=== PATIENT | female | born 1960 | race Caucasian/White ===

== ENCOUNTER 2017-05-18 17:17 | Inpatient (IN) | payer OTHER ==
[~2017-05-18] VITALS: Ht 158.7 cm; Wt 83.6 kg
--- NOTE | ~2017-05-18 | PR ---
[place], [place] PROGRESS NOTE [id number] UNIT #: [id number] ROOM: 311 DOCTOR: THERESA BOLAÑOS MD BIRTHDATE: [birth year] DOS: 05/23/2017 CHIEF COMPLAINT: Ya, I am taking my medicines." SUMMARY OF THE VISIT: The patient was interviewed as she sat in the dining area, watching television. She stopped and engaged readily in conversation. She matter of fact did mention that she was taking her medicines, but she notes no positives or no negative and per her report things are exactly the same with her with or without the medication. She voices a plan to leave here and go move in with her youngest son; however, when discussed in treatment team housing is problematic as all of her children now have stated they do not want her to be living with them and she may now be homeless. She is tolerating the Invega well. She did receive the Invega Sustenna injection of 234 mg IM yesterday. I see no tardive dyskinesia, extrapyramidal symptoms, sedation or somnolence. MENTAL STATUS: She remains alert and oriented. Mood does still seem to be depressed. She breaks into tears frequently. She is rather guarded and suspicious and not forthcoming with details. Nurses report paranoia is still present. Memory for the most part is intact. PLAN: I will go ahead and order her secondary loading dose of Invega Sustenna of 156 mg IM for May 27. She will then proceed with a similar dose every month. We will continue to engage her in individual and fernandez milieu activity, explore placement options including group homes, discharge then when psychiatrically stable. THERESA BOLAÑOS MD CM:PNTRANS 9 THERESA BOLAÑOS MD 05/23/1740 interface
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
--- NOTE | ~2017-05-18 | PR ---
[place], [place] PROGRESS NOTE NAME: DARIO GOLDSMITH [facility] #: [id number] UNIT #: [id number] ROOM: 311 DOCTOR: Tona AMARAL,COLIN BIRTHDATE: [birth year] DOS: 05/20/2017 SUBJECTIVE: The patient seen and spoke with the staff. Per staff, the patient is refusing medication, only took one medication last night. Very irritable, isolated and demanding. The patient was on her bed, irritable and angry. When I asked her that how she is doing, she said "I don't know." She totally refused to engage on any conversation. MENTAL STATUS EXAMINATION: Irritable, hostile. Described her mood as "I don't know." Affect was labile. Thought process disorganized. Denied auditory or visual hallucination, but seems responding to stimuli. She denied suicidal ideation, intent or plan. She also denied homicidal ideation, intent or plan. Insight and judgment impaired. ASSESSMENT: Schizoaffective disorder. PLAN: 1. Continue current medication and care. 2. If the patient continues to refuse medication, probably we need to get a court order for forced medication. 3. A 1:1 therapy, psychoeducation, coping skills. COLIN AMARAL MD CM:PNLOREE 1821 03 Tona AMARAL 05/20/17 2303 interface
--- NOTE | ~2017-05-18 | PR ---
[place], [place] PROGRESS NOTE NAME: DARIO GOLDSMITH UNIT #: [id number] ROOM: 311 DOCTOR: THERESA CHA MD BIRTHDATE: [birth year] DOS: 05/30/2017 CHIEF COMPLAINT: Why can't I go Dr. Cha, I have done everything that you guys have asked." SUMMARY OF THE VISIT: The patient was interviewed as she was resting in bed. She was pleasant and cooperative upon approach, but did begin crying when she was upset about not being able to be discharged yesterday. I discussed with her at length the whole process and how the care aide is not requiring us to write a letter on her behalf, requesting that she be discharged. She was rather perplexed and bewildered by the whole process, but understood and nodded in agreement. She did request that I stop her Remeron, stating that she does not believe she needs that. I did agree to do so, but strongly recommended that she continue with the Invega. The patient has been much more compliant and much more pleasant and cooperative over the last 48 to 72 hours. MENTAL STATUS: She is alert and oriented with only some mild time gaps. Mood does seem to be strongly trending towards euthymia. Affect is much more appropriate. There are no symptoms of edith or hypomania and her delusions have lessened in frequency and intensity. Memory for the most part is intact. PLAN: I will discontinue her Remeron per her request. We will await the court's notification that we may discharge the patient back to the community and we will do so when we have the final ruling. THERESA CHA MD CM:PNTRANS 1007 1028 THERESA CHA MD 05/30/17 1027 interface
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
--- NOTE | ~2017-05-18 | PR ---
[place], [place] PROGRESS NOTE NAME: [facility] #[facility] [id number] UNIT #: [id number] ROOM: 311 DOCTOR: THERESA BOLAÑOS MD BIRTHDATE: [birth year] DOS: 05/25/2017 CHIEF COMPLAINT: "I got my shower this morning. I feel better." SUMMARY OF THE VISIT: The patient was interviewed in the dining area where she was watching television. She engaged readily in conversation, reporting that she slept better. She took a shower and feels better and ate a good breakfast. She was much more engaging. I did discuss with her the issue that she does not have a place to stay and that we are in the process of trying to find her a safe place to go and that I could not discharge her without knowing she had a safe place to go. She is compliant with her meds and has been much more cooperative. She denies side effects from the medications themselves. MENTAL STATUS: She is alert and oriented. Mood does seem to be trending towards euthymia. Affect is more appropriate. There is no edith or hypomania. Nurses report, however, she remains grossly delusional, which she hides from me. Nurses report that she oftentimes tells them that she needs multiple showers throughout the day because she smells of sex and that she needs to wash the smell off of her. She is guarded and somewhat hesitant to discuss things with me. Memory for the most part is intact. PLAN: She is to receive her secondary loading dose of Invega Sustenna of 156 mg IM today. I will write for her maintenance dose of Invega Sustenna 156 mg IM on 06/21/2017. I will discontinue her oral Invega at this point and renew her p.r.n. Ativan in case she requires intervention. Engage in individual and fernandez milieu activity, returning to the least restrictive environment when stable. THERESA BOLAÑOS MD CM:PNTRANS [id number] 1016 THERESA BOLAÑOS MD 05/25/17 1015 interface
--- NOTE | ~2017-05-18 | PR ---
[place], [place] PROGRESS NOTE NAME: [id number] UNIT #: [id number] ROOM: 311 DOCTOR: THERESA BOLAÑOS MD BIRTHDATE: [birth year] DOS: 05/26/2017 CHIEF COMPLAINT: "So you are forcing me to take medicine." SUMMARY OF THE VISIT: The patient was interviewed both prior to, during and after her court hearing for continued stay. During the court hearing, the patient made it known that she requested a court appointed claims attorney. She remains very volatile and very paranoid and feels that we are all plotting against her. I did attempt to align with her and educate her that as of now, we have issues with her having a safe place to go post-discharge, although social psychologist informs me that perhaps her daughter will let her move in temporarily as she is waiting for housing. I did also encourage her to cooperate with the medicines as if she did I did think she would be able to leave the hospital in a few days as opposed to sustaining a lengthy stay here as we wait for a hearing to occur. She did nod in approval eventually and did state that she would try to work with me. MENTAL STATUS: She is alert and oriented. She remains suspicious and guarded. She is very volatile and one moment will be crying and the next moment will be very irritable and yelling. She is tolerating the medicines well. I see no sedation, somnolence, extrapyramidal symptoms or tardive dyskinesia. PLAN: I will resume the oral Invega at 9 mg in the morning. I did attempt to discontinue this as a means to show her that the injection was going to take the place of the pills, but she refused the secondary loading dose of the Invega Sustenna. I will have nursing retry to give her the Invega Sustenna 156 mg IM today. Depending on her compliance, I may then attempt to discontinue the oral Invega once again over the weekend. We will continue to have her engage in individual and fernandez milieu activity with the plan then to return to the least restrictive environment when psychiatrically stable. THERESA BOLAÑOS MD CM:PNTRANS 0927 0939 THERESA BOLAÑOS MD 05/26/17 0937 interface
--- NOTE | ~2017-05-18 | PR ---
[place], [place] PROGRESS NOTE [id number] UNIT #: [id number] ROOM: 311 DOCTOR: THERESA BOLAÑOS MD BIRTHDATE: [birth year] DOS: 05/27/2017 CHIEF COMPLAINT: "I don't want to ruin my reputation and your reputation by taking the shot, what should I do? SUMMARY OF THE VISIT: The patient was interviewed first in the dining room, then later she did ask if she can speak to me alone. When we did, she was fixated on whether or not she should take the injection. We discussed the pros and cons of taking the injection and what my ultimate plan would be. This has changed dramatically since the report is her daughter will accept her back into her home, at least short term. The patient continues to be very much paranoid and delusional. My hope is that a secondary loading dose of the Invega Sustenna will significantly help break the psychosis. She is tolerating the medicines well. I see no sedation, somnolence, extrapyramidal symptoms or tardive dyskinesia. MENTAL STATUS: She is alert and oriented. Mood does still seem to be somewhat down, but a lot of this I believe is related to the paranoia and the fact that she feels persecuted and that bad things are happening to her. She remains grossly psychotic. PLAN: The nurses will reattempt to give her the Invega Sustenna injection of 156 mg IM today. We will continue to support and redirect, returning to the least restrictive environment when psychiatrically stable. THERESA BOLAÑOS MD CM:PNTRANS 0839 0925 THERESA BOLAÑOS MD 05/27/17 0924 interface
--- NOTE | ~2017-05-18 | PR ---
[place], [place] PROGRESS NOTE [id number] #: [id number] ROOM: 311 DOCTOR: THERESA BOLAÑOS MD BIRTHDATE: [birth year] DOS: 05/28/2017 CHIEF COMPLAINT: "Well I get to go next week." SUMMARY OF THE VISIT: The patient was interviewed in her room. She was resting in bed. She engaged readily in conversation, fixated on going home. She still does not want to comply with all aspects of care. MENTAL STATUS: She is alert and oriented. Mood does seem to be somewhat trending towards euthymia. Affect is more appropriate. There is no edith or hypomania, though there are still gross delusional system present. PLAN: I will maintain her current psychotropic regimen at this point. Engage in individual and fernandez milieu activity, returning to the least restrictive environment when stable. THERESA BOLAÑOS MD CM:PNTRANS 1501 26 THERESA BOLAÑOS MD 05/28/172124 interface
--- NOTE | ~2017-05-18 | PR ---
[place], [place] PROGRESS NOTE NAME: DARIO GOLDSMITH [facility] #: [id number] UNIT #: [id number] ROOM: 311 DOCTOR: Tona AMARAL,COLIN BIRTHDATE: [birth year] DOS: 05/21/2017 PSYCHIATRIC PROGRESS NOTE The patient seen and spoke with the staff. Per staff, the patient is not taking any medication. She is still delusional and paranoid. She took at least showers already this morning. The patient was in her bed likely yesterday. When I asked her that why she is not taking medication, she said that she does not need any, then she said that she wanted to go home. She also mentioned that she does not like to be in the hospital. When I asked if they are to go home, she need to take her medications, she did not answer anything. MENTAL STATUS EXAMINATION: Pleasant, cooperative. Described her mood as "okay." Affect labile, broad range. Thought process disorganized at times. She denied auditory or visual hallucination, but seems responding to stimuli. She is delusional or paranoid. She denied suicidal ideation, intent or plan. She also denied homicidal ideation, intent or plan. Insight and judgment impaired. ASSESSMENT: Schizoaffective disorder. PLAN: 1. Continue current medication and care. Need to educate patient regarding the importance of taking medication. 2. If patient continues to refuse medication, we need to get a court order for forced medication. 3. Encourage activities and groups. 4. Final medication management and discharge plan by the regular team. COLIN AMARAL MD CM:FELIX 12 Tona AMARAL 05/21/17 2344 interface
--- NOTE | ~2017-05-18 | PR ---
[place], [place] PROGRESS NOTE NAME: [facility] [id number] UNIT #: [id number] ROOM: 311 DOCTOR: THERESA BOLAÑOS MD BIRTHDATE: [birth year] DOS: 05/24/2017 CHIEF COMPLAINT: "I already had my breakfast, just leave me alone." SUMMARY OF THE VISIT: The patient was interviewed as she rested in bed. Initially, she was angry, short and terse with me. She even raised her voice at me at one point. I did try to calm her and enlist her to work with me as opposed to working against me and she did seem to calm and be able to converse with me more readily. She did take the Invega Sustenna and has tolerated it well. She has been more compliant overall with her psychiatric medications. She still, however, remains grossly paranoid and very delusional. MENTAL STATUS: She is alert and oriented to person, place, approximate to time. Mood seems labile still. She jumps from topic to topic. She at times is nearly pressured in her speech, but is redirectable. She remains grossly delusional and paranoid. Memory has some mild gaps, but overall she is fairly well intact. PLAN: I will speed up the titration of her Invega Sustenna. I will give her, her secondary loading dose of Invega Sustenna 156 mg IM on May 25 as opposed to May 27. I will renew her p.r.n. Ativan in case she requires intervention. We will attempt to engage her in individual and fernandez milieu activity as best we can, continue to explore housing options for her as family has repeatedly stated they are unable to meet her needs and she would require some more supervision than to be living alone. We will discharge then when psychiatrically stable and when an appropriate housing issue has been found for her. THERESA BOLAÑOS MD CM:PNTRANS 1 1 THERESA BOLAÑOS MD 05/24/17 0941 interface
[2017-05-18] MEDS ORDERED: ZOCOR40 MG PO (17:34)
[2017-05-18] MEDS ORDERED: DUONEB 3 MG/3 ML3 M1 INH (17:36)
[2017-05-18] MEDS ORDERED: INVEGA SUSTENN234 MG IM (17:38)
[2017-05-18 22:02] VITALS: BP 124/81
[2017-05-18 23:53] VITALS: BP 124/81
[2017-05-19 06:33] LABS: BILIRUBIN NEGATIVE (NEGATIVE); BLOOD NEGATIVE (NEGATIVE); CLARITY SL CLOUDY (CLEAR); COLOR YELLOW (YELLOW); GLUCOSE NEGATIVE (NEGATIVE); KETONE NEGATIVE (NEGATIVE); LEUKO ESTERASE 1+ (NEGATIVE); NITRITE NEGATIVE (NEGATIVE); SPECIFIC GRAVITY <= 1.005 (1.005-1.030); UROBILINOGEN 0.2 E.U./dl (0.2-1.0)
[2017-05-19 06:58] LABS: BACTERIA TRACE
[2017-05-19 07:36] LABS: BASO % 0.7 % (0.0-1.0); EOS % 0.7 % (1.0-4.0); HEMATOCRIT 46.9 % (37.0-47.0); HEMOGLOBIN 15.9 g/dl (12.0-16.0); LYMPH # 2.1 10*3/uL (1.3-4.4); LYMPH % 33.7 % (27.0-41.0); MEAN CELL VOLUME 92.7 fl (81.0-99.0); MEAN CORPUSCULAR HGB 31.4 pg (27.0-31.0); MEAN CORPUSCULAR HGB CONC 33.9 g/dl (33.0-37.0); MEAN PLATELET VOLUME 12.1 fl (9.6-12.3); MONO # 0.5 10*3/uL (0.1-1.0); NEUT # 3.5 10*3/uL (2.3-7.9); NEUT % 56.7 % (47.0-73.0); PLATELET COUNT AUTOMATED 158 10*3/uL (130-400); RED BLOOD COUNT 5.06 10*6/uL (4.10-5.10); RED CELL DISTRI WIDTH 11.9 % (0-14.5); WHITE BLOOD COUNT 6.1 10*3/uL (4.8-10.8)
[2017-05-19 07:59] VITALS: BP 118/73
[2017-05-19 08:05] LABS: CHLORIDE 105 mmol/L (98-107); POTASSIUM 4.6 mmol/L (3.5-5.1); SODIUM 139 mmol/L (136-145)
[2017-05-19 08:27] LABS: ALBUMIN 3.3 gm/dl (3.1-4.5); ALKALINE PHOSPHATASE 91 U/L (45-117); BUN 23 mg/dl (7-24); CHOLESTEROL 153 mg/dL (<200); CREATININE 0.84 mg/dL (0.55-1.02); HDL CHOLESTEROL 53 mg/dl (40-60); LDL CHOLESTEROL 77 mg/dL (9-159); SGOT/AST 9 IU/L (3-35); SGPT/ALT 16 U/L (12-78); TOTAL PROTEIN 6.6 gm/dL (6.4-8.2); TRIGLYCERIDES 117 mg/dl (<150); VLDL CHOLESTEROL 23 mg/dL (6-40)
[2017-05-19 10:27] LABS: VITAMIN D, 25-HYDROXY 10.6 ng/mL (30-100)
[2017-05-19 20:10] VITALS: BP 109/65; BP 118/73
[2017-05-20 07:57] VITALS: BP 110/66
[2017-05-20 20:20] VITALS: BP 112/75
[2017-05-21 07:49] VITALS: BP 130/70
[2017-05-21 20:04] VITALS: BP 126/74
[2017-05-22 08:05] VITALS: BP 119/77
[2017-05-22 19:48] VITALS: BP 122/72
[2017-05-23 08:00] VITALS: BP 111/57
[2017-05-23 20:00] VITALS: BP 101/68
[2017-05-24 07:33] VITALS: BP 120/76
[2017-05-24 20:00] VITALS: BP 113/64
[2017-05-25 07:36] VITALS: BP 120/66
[2017-05-25 20:49] VITALS: BP 117/60
[2017-05-26 07:41] VITALS: BP 120/62
[2017-05-26 20:00] VITALS: BP 129/81
[2017-05-27 08:13] VITALS: BP 121/62
[2017-05-27 20:04] VITALS: BP 126/68
[2017-05-28 08:01] VITALS: BP 125/83
[2017-05-28 08:02] VITALS: BP 125/83
[2017-05-28 20:00] VITALS: BP 125/69
[2017-05-29] MEDS ORDERED: MIRTAZAPINE15 M2 PO (08:59)
[2017-05-29] MEDS ORDERED: INVEGA9 MG PO (08:59)
[2017-05-29] MEDS ORDERED: INVEGA SUSTENN156 MG IM (08:59)
[2017-05-29] MEDS ORDERED: Vitamin D PO (08:59)
[2017-05-29 09:07] VITALS: BP 125/76
[2017-05-29 20:00] VITALS: BP 122/64
[2017-05-30 07:55] VITALS: BP 130/68
== END 2017-05-30 16:09 | disposition home or self-care (01) | DRG 885 ==
LOC: 3N 17:17
PROVIDERS: Psychiatry & Neurology Psychiatry
DX: F25.1 Schizoaffective disorder, depressive type (principal); F22 Delusional disorders; F32.9 Major depressive disorder, single episode, unspecified; X08.8XXS Exposure to other specified smoke, fire and flames, sequela; E78.2 Mixed hyperlipidemia; J45.20 Mild intermittent asthma, uncomplicated; F12.10 Cannabis abuse, uncomplicated; T20.1 Burn of first degree of head, face, and neck; Z72.0 Tobacco use; Z71.6 Tobacco abuse counseling; Z90.49 Acquired absence of other specified parts of digestive tract; Z82.49 Family history of ischemic heart disease and other diseases of the circulatory system; Z80.1 Family history of malignant neoplasm of trachea, bronchus and lung; Z88.0 Allergy status to penicillin; Z88.6 Allergy status to analgesic agent; Z79.899 Other long term (current) drug therapy

== ENCOUNTER 2018-04-30 11:23 | Inpatient (IN) | payer OTHER ==
--- NOTE | ~2018-04-30 | PR ---
[place], [place] PROGRESS NOTE NAME[id number] UNIT #: [id number] ROOM: 312 DOCTOR: THERESA BOLAÑOS MD BIRTHDATE: [birth year] DOS: 05/04/2018 INTERVAL NOTE CHIEF COMPLAINT: "My family don't want me no one, no one loves me." SUMMARY OF THE VISIT: The patient was interviewed as she was attempting to eat breakfast. She was having a great deal of difficulty feeding herself and was using her hands to feel around the tray in order to be able to grab utensils and/or food. She did require a lot of supervision by the aides to help her eat. Nurses report, she requires a great deal of support and redirection to dress and attend to her ADLs. She also does seem to be outwardly depressed and sought for a brief period of time when she was talking about not having a place to go to and having people who love her. She did endorse some difficulty sleeping last night and notes that her appetite has fluctuated prior to coming into the hospital. MENTAL STATUS: She is alert and oriented with some mild time gaps. Mood does seem to be still somewhat labile with depressive and anxious overtones. She still does tend to be very flighty and disjointed at times. Memory does have gaps. PLAN: I will go ahead and add Remeron SolTab 15 mg at bedtime to combat the depression. We will plan to reload her with her secondary loading dose of Invega Sustenna this weekend and monitor for risk, benefit. Given the severity of her physical and mental decline and her poor decision making and medication noncompliance, I do feel that the patient would benefit from a long-term care placement. We will engage in individual and fernandez milieu activity, returning to the least restrictive environment when psychiatrically stable. THERESA BOLAÑOS MD CM:PNTRANS 7 5 THERESA BOLAÑOS MD 05/04/18926 interface
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
--- NOTE | ~2018-04-30 | PR ---
[place], [place] PROGRESS NOTE [id number] #: [id number] ROOM: 317 DOCTOR: THERESA BOLAÑOS MD BIRTHDATE: [birth year] DOS: 05/08/2018 CHIEF COMPLAINT: "I'm okay, thank you. I didn't want that sleeping pill because I think it was too strong." SUMMARY OF THE VISIT: The patient was interviewed in the dining area. She had already completed her breakfast. She engaged readily in conversation. She was much more polite and pleasant. She thanked me for helping her. She did report that she refused the sleeping pill because she thought it was too strong for her. When I did offer her an adjustment in the sleeping pill, she nodded in approval. Otherwise, she seems to be tolerating the current medication regimen well and overall does seem to be trending toward improvement. I did discuss with her the fact that [facility] did accept her as a patient there and she requested information from me about the facility. Otherwise, she was bright and pleasant and offered no other complaints. MENTAL STATUS: She is alert and oriented with time gaps. Mood does seem to be strongly trending towards euthymia. Affect is much more appropriate. There is no edith or hypomania. There were outwardly no signs of psychosis. Short term memory continues to have gaps. PLAN: I will adjust her dose of the Remeron to 30 mg at bedtime attempting to mute some of the sedation and somnolence. We will engage her in individual and fernandez milieu activity with the ultimate plan to admit her to [facility] where I will be her treating psychiatrist of record. THERESA BOLAÑOS MD CM:PNTRANS [phone] THERESA BOLAÑOS MD 05/09/18 0352 interface
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
--- NOTE | ~2018-04-30 | PR ---
[place], [place] PROGRESS NOTE NAME: DARIO GOLDSMITH UNIT #: [id number] ROOM: 317 DOCTOR: THERESA BOLAÑOS MD BIRTHDATE: [birth year] DOS: 05/07/2018 CHIEF COMPLAINT: "I want to go home, do I get to leave here soon." SUMMARY OF THE VISIT: The patient was interviewed as she was in the dining room. She had eaten all of her breakfast and requested seconds. She was pleasant upon approach. She did ask if we have found her a place to stay yet and I told her that it was in the works. She thanked me profusely for helping her. She was very pleasant and cooperative and engaged readily in conversation. There was no agitation or aggression. I also did not see the presence of any sedation, somnolence, extrapyramidal symptoms or tardive dyskinesia. MENTAL STATUS: She is alert and oriented to person, place, not time. Mood does seem to be strongly trending towards euthymia. Affect is much more appropriate. There is no edith or hypomania. There is no gross psychosis. Short term memory does have some mild gaps. PLAN: I will renew p.r.n. Ativan should she require intervention. Engage in individual and fernandez milieu activity, returning to the least restrictive environment when psychiatrically stable. THERESA BOLAÑOS MD CM:PNTRANS [id number] THERESA BOLAÑOS MD 05/08/18 0423 interface
--- NOTE | ~2018-04-30 | PR ---
[place], [place] PROGRESS NOTE NAME: DARIO GOLDSMITH UNIT #: [id number] ROOM: 312 DOCTOR: THERESA BOLAÑOS MD BIRTHDATE: [birth year] DOS: 05/02/2018 INTERVAL NOTE CHIEF COMPLAINT: "I took my medicine, can't I go home now." SUMMARY OF THE VISIT: The patient was interviewed in the dining area where she was sitting alone. She engaged readily in conversation. She did report that she has taken her medicine. She did report she did not like the taste and I did offer her the possibility of receiving a monthly injection. At first, she refused this, but later as she thought about it she changed her mind and said that she would take the injection. convention services manager did share with me that the patient may not have a place to go as her son now has stating he does not want his mom to return home, fearing that this is not the best environment for her. MENTAL STATUS: She was much more engaging in conversation and there was no bizarreness, readily discussed. She reports no side effects from the medicine and I see no sedation, somnolence or extrapyramidal symptoms. PLAN: I will go ahead and start her on Invega Sustenna 234 mg IM today. Support and monitor, engage in individual and fernandez milieu activity, returning to the least restrictive environment when psychiatrically stable. THERESA BOLAÑOS MD CM:PNTRANS [phone] THERESA BOLAÑOS MD 05/03/18 0540 interface
--- NOTE | ~2018-04-30 | PR ---
[place], [place] PROGRESS NOTE NAME: DARIO GOLDSMITH UNIT #: [id number] ROOM: 312 DOCTOR: THERESA BOLAÑOS MD BIRTHDATE: [birth year] DOS: 05/03/2018 INTERVAL NOTE CHIEF COMPLAINT: "Have they all given up on me." SUMMARY OF THE VISIT: The patient was interviewed in the dining area where she had completed her breakfast and was sitting there, trying to dry her hands from the Maple syrup, I did engage her in conversation. She asked if she was leaving today because she took her injection. I then informed her that her son did not feel comfortable with her returning home and did not want her then discharge to his home at that time, she sobbed almost hysterically stating that no one wants her and that her entire family has given up. She did verbalize that she would be willing to sign in; however, 30 minutes later when the nurse did approach her to sign in, she refused at that point in time, we will revisit the situation later today. Outwardly, she is tolerating the Invega Sustenna injection well without sedation, somnolence or extrapyramidal symptoms. MENTAL STATUS: She is alert and oriented. Mood does seem to be trending towards euthymia. Affect is more appropriate. There is no edith or hypomania. PLAN: I will order Invega Sustenna secondary loading dose and a monthly dose thereafter of 156 mg on 05/05/2018, engage in individual and fernandez milieu activity, returning then to the least restrictive environment when psychiatrically stable. THERESA BOLAÑOS MD CM:PNTRANS [phone] THERESA BOLAÑOS MD 05/04/18 0722 interface
[~2018-04-30 11:23] MED LIST: DUONEB 3 MG/3 ML3 M1 INH; INVEGA SUSTENN156 MG IM; INVEGA SUSTENN234 MG IM; INVEGA9 MG PO; MIRTAZAPINE15 M2 PO; Vitamin D PO; ZOCOR40 MG PO
[2018-04-30] MEDS ORDERED: INVEGA SUSTENN234 MG IM (12:02)
[2018-04-30] MEDS ORDERED: DEPAKOTE125 MG PO (12:03)
[2018-04-30 15:50] VITALS: BP 108/84
--- NOTE | 2018-04-30 15:50 | NUR ---
RUPALDARIO a 57 year old F admitted via stretcher from the EMERGENCY ROOM as a emergency 72 hr. hold admission. Arrived on unit at 1550. ALLERGIES: CODEINE, PCN. Vital signs are: 98.1-83-18 108/84. 95% ROOM AIR. THE PATIENT REFUSED TO SIGN ANY ADMISSION FORMS. PT ADMITTED VIA PINK SLIP. PT GAVE NAMES OF SEVERAL INDIVIDUALS SHE DOES NOT WISH TO COMMUNICATE WITH. THESE WERE LISTED ON THE BEHAVIORAL HEALTH CONSENT FORM AND PLACED ON PT'S CHART, HOWEVER, PT REFUSED TO SIGN THIS FORM: Admitted under the services of Dr. MAMI BAILEY,[facility]. A search was conducted and hazardous articles were removed. Client was oriented to the unit. TYESHA LUIS
--- NOTE | 2018-04-30 16:18 | NUR ---
PM GROUP/MUSIC/ART PT JUST ADMITTED TO [facility]. PT UNABLE TO ATTEND GROUP DUE TO OTHER ASSESSMENTS AND BECOMING ORIENTED TO UNIT. PT WILL BE ENCOURAGED TO ATTEND AND PARTICIPATE IN FUTURE GROUP SESSIONS.
[2018-04-30 16:29] LABS: BILIRUBIN NEGATIVE (NEGATIVE); BLOOD NEGATIVE (NEGATIVE); CLARITY CLEAR (CLEAR); COLOR YELLOW (YELLOW); GLUCOSE NEGATIVE (NEGATIVE); KETONE TRACE (NEGATIVE); LEUKO ESTERASE 2+ (NEGATIVE); NITRITE NEGATIVE (NEGATIVE); SPECIFIC GRAVITY 1.025 (1.005-1.030); UROBILINOGEN 0.2 E.U./dl (0.2-1.0)
--- NOTE | 2018-04-30 16:45 | NUR ---
ENRIQUE BONNER AWARE OF ADMISSION.
--- NOTE | 2018-04-30 17:00 | NUR ---
Introduced self to pt to establish rapport and discussed meeting tomorrow for PSA. Pt asked if she needed anything tonight and pt denied. Pt was eating a large meal and seemed to have a good appetite.
[2018-04-30 17:03] LABS: BACTERIA 2+; RBC 0-2 rbc/hpf (0-2); WBC 16-20 wbc/hpf (0-5)
--- NOTE | 2018-04-30 17:07 | NUR ---
CALL PLACED TO [phone] FOR HOSPITALIST CELL NUMBER ONE FOR , SPOKE TO , MADE AWARE OF CONSULT. STATES TO PLACE CONSULT UNDER .
[2018-04-30 17:14] VITALS: BP 108/84
--- NOTE | 2018-04-30 17:51 | NUR ---
ON UNIT TO SEE PT AT THIS TIME.
--- NOTE | 2018-04-30 18:26 | NUR ---
ORDER RECIEVED FOR STAT URINE DRUG SCREEN, CALL PLACED TO , MADE AWARE URINE DRUG SCREEN WAS COMPLETED AT [facility] LAST NIGHT, COPY ON CHART. UDS NEGATIVE FOR ALL. STATES NO NEED TO REPEAT UDS AT THIS TIME.
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
[2018-04-30 19:51] VITALS: BP 118/74
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
--- NOTE | 2018-05-01 05:19 | NUR ---
PATIENT OBSERVED ON Q 15 MIN CHECKS TO HAVE SLEPT APPROX 7 HOURS WITH X1 AWAKENING TO USE THE RESTROOM WITH ASSISTANCE OF STAFF. NO SIGNS OR SYMPTOMS OF DISTRESS NOTED.
[2018-05-01 07:15] LABS: BASO % 0.4 % (0.0-1.0); EOS # 0.1 10*3/uL (0.0-0.4); EOS % 1.6 % (1.0-4.0); HEMATOCRIT 43.9 % (37.0-47.0); HEMOGLOBIN 14.1 g/dl (12.0-16.0); LYMPH # 2.5 10*3/uL (1.3-4.4); LYMPH % 35.2 % (27.0-41.0); MEAN CORPUSCULAR HGB 30.5 pg (27.0-31.0); MEAN CORPUSCULAR HGB CONC 32.1 g/dl (33.0-37.0); MEAN PLATELET VOLUME 11.5 fl (9.6-12.3); MONO # 0.6 10*3/uL (0.1-1.0); MONO % 8.1 % (3.0-9.0); NEUT # 3.9 10*3/uL (2.3-7.9); NEUT % 54.4 % (47.0-73.0); PLATELET COUNT AUTOMATED 180 10*3/uL (130-400); RED BLOOD COUNT 4.62 10*6/uL (4.10-5.10); RED CELL DISTRI WIDTH 11.9 % (0-14.5); WHITE BLOOD COUNT 7.1 10*3/uL (4.8-10.8)
[2018-05-01 07:36] LABS: ALBUMIN 2.9 gm/dl (3.1-4.5); ALKALINE PHOSPHATASE 85 U/L (45-117); BUN 26 mg/dl (7-24); CHLORIDE 106 mmol/L (98-107); CHOLESTEROL 202 mg/dL (<200); CREATININE 0.86 mg/dL (0.55-1.02); POTASSIUM 4.2 mmol/L (3.5-5.1); SGOT/AST 21 IU/L (3-35); SGPT/ALT 20 U/L (12-78); SODIUM 142 mmol/L (136-145); TOTAL PROTEIN 6.2 gm/dL (6.4-8.2); TRIGLYCERIDES 91 mg/dl (<150); VLDL CHOLESTEROL 18 mg/dL (6-40)
[2018-05-01 07:37] VITALS: BP 118/76
[2018-05-01 07:45] LABS: HDL CHOLESTEROL 51 mg/dl (40-60); LDL CHOLESTEROL 133 mg/dL (9-159)
--- NOTE | 2018-05-01 08:15 | NUR ---
PHYSICAL THERAPY Nursing screen received. PT orders also received. Thank you. Brionna Duncan,PT
[2018-05-01 08:19] LABS: VITAMIN D, 25-HYDROXY 15.4 ng/mL (30-100)
--- NOTE | 2018-05-01 08:30 | NUR ---
Treatment Plan meeting with Dr. Cha, RN, AT, SW and Loss Prevention Coordinator. Plan for discharge next week. Pt. is from Home. Will work with family to discuss discharge Planning.
--- NOTE | 2018-05-01 09:26 | NUR ---
SPOKE WITH 'S OFFICE REGARDING COMPETANCY EVAL NEEDED, PER STAFF NOT IN UNTIL TOMORROW.
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
--- NOTE | 2018-05-01 11:55 | NUR ---
B12 INJECTION GIVEN TO RIGHT DELTOID PT TOLERATED WITHOUT ISSUE.
--- NOTE | 2018-05-01 11:58 | NUR ---
AM GROUP THERAPY PT WAS PRESENT FOR MORNING GROUP THERAPY SITTING IN A WHEELCHAIR WITH HER HEAD DOWN ON THE TABLE. PT WAS INVITED AND REFUSED TO JOIN OR PARTICIPATE IN GROUP. PT WOULD OCCATIONALLY CALL FOR A NURSE OR ASK ME IF SHE COULD GO TO HER ROOM AND GO TO BED. PT ABRUPTLY YELLED OUT, "WILLOWDEAN" AND SCARED THE ENTIRE GROUP. PT WAS ASKED NOT TO DO THAT AND STATED, "DO WHAT?" PT CLAIMS THAT SHE IS BLIND BUT WAS WITNESSED BY THIS GRAVITY MANAGER TO GET AN ARM CHAIR, POSITION IT AND PROP HER FEET UP ON THE CHAIR. PT WILL BE FURTHER ENCOURAGED TO PARTICIPATE IN GROUP ACTIVITIES.
--- NOTE | 2018-05-01 11:58 | NUR ---
PERSONAL DAILY GOAL PT UNWILLING TO PARTICIPATE IN DAILY GOAL SETTING.
--- NOTE | 2018-05-01 12:43 | NUR ---
initial clinicals faxed to insurance company for review
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
--- NOTE | 2018-05-01 14:46 | NUR ---
Message left for Valentine at [facility] to discuss follow up appointments.
--- NOTE | 2018-05-01 15:40 | NUR ---
PM GROUP THERAPY/INTERPERSONAL INTERACTIONS PT DID NOT ATTEND AFTERNOON GROUP THERAPY. PT WAS IN BED RESTING. WILL ENCOURAGE PT TO ATTEND AND PARTICIPATE TOMORROW.
[2018-05-01 20:00] VITALS: BP 118/67
--- NOTE | 2018-05-01 23:00 | NUR ---
P-PARANOIA AND MEDICATION COMPLIANCE. 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 PATIENT PARANOID ABOUT TAKING MEDICATION. PATIENT STATED THAT THE MEDICATION IS POISON. PATIENT COMPLIANT WITH MEDICATIONS AT HS. I-REDIRECTION WITH 1:1 INTERACTION AND PRESENT REALITY ORIENTATION, EDUCATE AND ENCOURAGE MEDICATION COMPLIANCE R-PATIENT IS AGITATED AND TEARFUL THIS SHIFT. PATIENT WITH NO HALLUCINATIONS OR DELUSIONS. PATIENT WITH NO SUICIDAL OR HOMICIDAL IDEATIONS. PATIENT PREOCCUPIED WITH GOING TO THE BATHROOM THROUGHOUT SHIFT. PATIENT AMBULATORY WITH ASSIST X 1 DUE TO PATIENT HAVING POOR VISION. PATIENT CONTINENT OF BOWEL AND BLADDER. P-CONTINUE MEDICATION COMPLIANCE, CONTINUE TO PRESENT REALITY, ENCOURAGE GROUP THERAPY WHILE AWAKE
--- NOTE | 2018-05-02 02:10 | NUR ---
24 HR chart check completed.
--- NOTE | 2018-05-02 05:58 | NUR ---
PATIENT SLEPT 3-4 HOURS OF INTERRUPTED SLEEP THROUGHOUT SHIF. Q 15 MINUTE CHECKS MAINTAINED
--- NOTE | 2018-05-02 06:10 | NUR ---
PATIENT WITH INCREASED FREQUENCY OF URINE THROUGHOUT SHIFT. URINE SPECIMEN OBTAINED. URINE CLOUDY YELLOW WITH OUTPUT OF 150ML. PATIENT DENIES DYSURIA AT THIS TIME.
[2018-05-02 07:50] LABS: BILIRUBIN NEGATIVE (NEGATIVE); BLOOD TRACE-LYSED (NEGATIVE); CLARITY SL CLOUDY (CLEAR); COLOR YELLOW (YELLOW); GLUCOSE NEGATIVE (NEGATIVE); KETONE NEGATIVE (NEGATIVE); LEUKO ESTERASE 1+ (NEGATIVE); NITRITE NEGATIVE (NEGATIVE); PH 6.5 (5.0-9.0); UROBILINOGEN 0.2 E.U./dl (0.2-1.0)
--- NOTE | 2018-05-02 08:05 | NUR ---
PT AWAKE, ALERT, EATING BREAKFAST AT THIS TIME IN THE DINING ROOM.
--- NOTE | 2018-05-02 08:07 | NUR ---
ON UNIT TO SEE PT AT THIS TIME.
[2018-05-02 08:29] VITALS: BP 121/67
--- NOTE | 2018-05-02 08:30 | NUR ---
Discharge Plan remains to discharge next week. Working with patient on Safe Placement.
--- NOTE | 2018-05-02 09:28 | NUR ---
Nursing screen and Occupational Therapy referral received. Thank you. Rupal Hoskins OTR/L
--- NOTE | 2018-05-02 09:50 | NUR ---
ON UNIT TO SEE PT AT THIS TIME.
[2018-05-02 10:47] LABS: BACTERIA 3+; CALCIUM OXALATE CRYSTALS 2+
--- NOTE | 2018-05-02 11:56 | NUR ---
AM GROUP THERAPY/SELF-CARE PT WAS IN BED AT THE START OF GROUP AND WHEN ENCOURAGED TO ATTEND STATED, "I DON'T FEEL LIKE IT, I HAVE A HEADACHE." PT WILL BE ENCOURAGED TO ATTEND THIS AFTERNOON GROUP.
--- NOTE | 2018-05-02 13:13 | NUR ---
ALICE SUSTENNA 234MG IM GIVEN TO LEFT GLUTE AT THIS TIME, PT WILLINGLY ACCEPTED INJECTION AND TOLERATED WELL. PT EXPRESSED UNDERSTANDING OF MEDICATION USE AND MONTHLY REGIME.
--- NOTE | 2018-05-02 13:56 | NUR ---
Spoke with Valentine at [facility]. Pt. has been discharged from their services due to Non-Compliance. Call placed to [facility] and Spoke with Chetna who also states that Patient was discharged from their services due to Non-Compliance. Left Voice Message for Intake at [facility] through [facility]. No Beds are available at this time and Chetna states that Patient will most likely require discharge to fdc.
--- NOTE | 2018-05-02 15:25 | NUR ---
NOTIFIED OF REPEAT UA RESULT. PT DENIES PAIN/DYSURIA BUT HAS HAD AN INCREASE IN URINARY FREQUENCY. STATES SHE WILL TAKE A LOOK. NNO AT THIS TIME.
--- NOTE | 2018-05-02 15:48 | NUR ---
PM GROUP THERAPY/RELAXATION TECHNIQUES PT ENTERED GROUP LATE. PT WAS IN A WHEELCHAIR AND REFUSED TO PARTICIPATE IN GROUP ACTIVITIES. PT MADE INAPPROPRIATE COMMENTS INTERMITTEDLY DURING THE TIME SHE WAS IN GROUP, BEING INSENSITIVE TO A PEER WHO WAS SOBBING. PT WAS REDIRECTED. PT IS INTRUSIVE AND DEMANDING. PT DID EXPRESS DELUSIONAL IDEATIONS BY STATING, "TYESHA, TYESHA! COME AND TAKE MY COFFEE, IT TASTED LIKE TOOTHPASTE AND I DON'T WANT ANYONE ELSE TO DRINK IT AND GET POISONED."
--- NOTE | 2018-05-02 15:59 | NUR ---
Received call back from Rosaura at Intake Case Management at [facility]. Unfortunately there are no Housing options for patient for housing at this time. Pt. was discharged due to Non-Compliance and they are unable to assist.
--- NOTE | 2018-05-02 16:30 | NUR ---
ON UNIT TO SEE PT
--- NOTE | 2018-05-02 16:42 | NUR ---
Collaborated with tx team and with psychologist regarding barriers to discharge and need for a placement. Discussed options and plan to complete updated PASSR tomorrow.
--- NOTE | 2018-05-02 17:59 | NUR ---
P- PARANOIA, LABILE MOOD. ISOLATIVE AT TIMES. I- ORIENTATION, MOOD AND BEHAVIOR ASSESSED. ASSESSED PT FOR SI/HI, INTENT OR PLAN. ASSESSED FOR S/S INTERNAL STIMULI, PARANOIA AND/OR DELUSIONS. MEDICATIONS ADMINISTERED PER PHYSICIAN'S ORDERS. ADL CARE COMPLETED BY PT WITH ASSIST OF STAFF X1 FOR SAFETY D/T VISUAL IMPAIRMENTS. PT ENCOURAGED TO ATTEND AND PARTICIPATE IN [facility] GROUPS AND ACTIVITIES. R- PT IS ALERT AND ORIENTED TO PERSON, PLACE AND APPROXIMATE TIMES. RESPS EASY AND EVEN ON ROOM AIR. MOOD IS LABILE, PT HAD ONE TEARFUL EPISODE THIS SHIFT, UPON 1:1 WITH RN PT STATED SHE WAS UPSET BECAUSE "I'VE LOST EVERYTHING" PT THEN REFUSED TO ELABORATE OR ENGAGE IN FURTHER CONVERSATION. PT CONTINUES TO APPEAR PARANOID REGARDING MEDICATIONS BUT HAS BEEN MEDICATION COMPLIANT THIS SHIFT WITHOUT DIFFICULTY. PT DENIES SI/HI, INTENT OR PLAN. PT DENIES HALLUCINATIONS, NO RESPONSE TO INTERNAL STIMULI NOTED. P- PLAN TO CONTINUE CURRENT TREATMENT, MONITOR MOOD AND BEHAVIOR, PROVIDE 1:1, REDIRECTION AND REORIENTATION NEEDED. CONTINUE TO ENCOURAGE MEDICATION COMPLIANCE AND GROUP ATTENDANCE AND PARTICIPATION.
--- NOTE | 2018-05-02 18:37 | NUR ---
SHIFT CHART CHECK COMPLETED.
[2018-05-02 20:53] VITALS: BP 114/77
--- NOTE | 2018-05-02 23:33 | NUR ---
P-PARANOIA, DEPRESSED MOOD, AND URINARY FREQUENCY. PATIENT ISOLATIVE AT THIS TIME TO HER ROOM. PATIENT GOING TO THE BATHROOM AND HAVING FREQUENCY. PATIENT DENIES DYSURIA I-REDIRECTION WITH 1:1 INTERACTION. EDUCATE AND ENCOURAGE MEDICATION COMPLIANCE R-PATIENT VERBALIZED THAT SHE WANTED TO GO TO HER ROOM SOON HER SNACK WAS OVER. PATIENT DID NOT WANT TO INTERACT WITH OTHERS AT HS. PATIENT STATED THAT SHE THINKS AT TIMES SHE SEES BETTER BUT THERE ARE OTHER TIMES THAT SHE REALLY CAN NOT. NOURISHMENT, SNACK, AND FLUIDS PROVIDED P-CONTINUE MEDICATION COMPLIANCE, CONTINUE REALITY ORIENTATION, ENCOURAGE GROUP THERPAY WHILE AWAKE
--- NOTE | 2018-05-03 00:19 | NUR ---
24 HR chart check completed.
--- NOTE | 2018-05-03 06:11 | NUR ---
PATIENT SLEPT 4 HOURS OF INTERRUPTED SLEEP THROUGHOUT SHIFT. Q 15 MINUTE CHECKS MAINTAINED
--- NOTE | 2018-05-03 07:46 | NUR ---
PT AWAKE, ALERT, EATING BREAKFAST IN DINING ROOM AT THIS TIME.
--- NOTE | 2018-05-03 08:15 | NUR ---
Treatment Plan meeting with Dr. Cha, RN, AT, SW and High Voltage Electrician. Plan for discharge Next week. Pt. will require 24 hour care and [place] [facility]. WIll need PASRR submitted.
[2018-05-03 09:13] VITALS: BP 122/76
--- NOTE | 2018-05-03 12:14 | NUR ---
AM GROUP/MUSIC THERAPY PT CHOSE NOT TO ATTEND MORNING GROUP BUT WAS BROUGHT IN BY NURSE TO AVOID SELF-ISOLATION. PT SAT IN WHEELCHAIR WITH FEET PROPPED AND EYES CLOSED. PT WAS REMOVED BY SW AND RETURNED UPSET. PT WAS WILLING TO DISCUSS WHAT WAS UPSETTING BUT THEN STOPPED MID SENTENCE STATING, "IT'S A LONG STORY AND I CAN'T TELL IT WITHOUT A CIGARETTE AND A SOFTWARE PROGRAM MANAGER.
--- NOTE | 2018-05-03 12:16 | NUR ---
PERSONAL DAILY GOAL SETTING SOCIAL BOUNDRIES/EDIQUETTE AND REALITY ORIENTATION
--- NOTE | 2018-05-03 13:47 | NUR ---
HENS completed online. PASRR submitted successfully. Document referred to [facility] for further review. Faxed Documentation to [facility] . Validation Complete. Copy placed on patient chart.
--- NOTE | 2018-05-03 14:10 | NUR ---
P- LABILE MOOD. TEARFUL. PARANOIA. DELUSIONAL THOUGHT PROCESSES. ISOLATIVE BEHAVIOR. I- ORIENTATION, MOOD AND BEHAVIOR ASSESSED. ASSESSED PT FOR SI/HI, INTENT OR PLAN. ASSESSED PT FOR S/S INTERNAL STIMULI. MEDICATIONS ADMINISTERED PER PHYSICIAN'S ORDERS. ADL CARE COMPLETED BY PT WITH ASSIST FROM STAFF X1 D/T VISUAL IMPAIRMENTS. 1:1 WITH PT, ALLOWED PT TIME TO EXPRESS SELF AND VENT FEELINGS AND FRUSTRATIONS. ENCOURAGED PT TO ATTEND AND PARTICIPATE IN GROUPS AND ACTIVITIES. R- PT IS ALERT AND ORIENTED X4. MEMORY APPEARS TO BE INTACT. RESPS EASY AND EVEN ON ROOM AIR. MOOD IS LABILE, MOOD RANGES FROM DEPRESSED AND TEARFUL TO ANGRY/IRRITABLE. PT WITH TEARFUL EPISODES REGARDING NOT BEING ABLE TO GO BACK TO HER SON'S HOUSE. PT IS MEDICATION COMPLIANT WITHOUT DIFFICULTY. PT DENIES SI/HI, INTENT OR PLAN. PT CONTINUES TO EXHIBIT S/S OF PARANOIA. PT CONTINUES TO EXPRESS DELUSIONAL THOUGHT PROCESSES REGARDING PROSECUTING PEOPLE BUT REFUSES TO ELABORATE. PT REFUSED TO ATTEND AM GROUP, STATED TO THIS RN "I'LL JUST THROW MYSELF ON THE FUCKING FLOOR THEN". P- PLAN TO CONTINUE CURRENT TREATMENT, MONITOR MOOD AND BEHAVIOR, PROVIDE REDIRECTION, 1:1 AND REORIENTATION NEEDED. CONTINUE TO ATTEMPT TO ENGAGE PT IN GROUPS AND ACTIVITIES. P- PLAN TO CONTINUE CURRENT TREATMENT, MONITOR MOOD AND BEHAVIOR, PROVIDE REDIRECTION, 1:1 AND REORIENTATION NEEDED. CONTINUE TO ATTEMPT TO ENGAGE PT IN GROUPS AND ACTIVITIES.
--- NOTE | 2018-05-03 14:20 | NUR ---
Spoke with Erica at [facility]. Beds available. Referral Faxed.
--- NOTE | 2018-05-03 15:10 | NUR ---
SHIFT CHART CHECK COMPLETED.
--- NOTE | 2018-05-03 15:55 | NUR ---
PM GROUP/CREATIVE OUTLETS PT WAS PRESENT FOR GROUP BUT REFUSES TO PARTICIPATE DUE TO "BLINDNESS". PT IS LESS INTRUSIVE AND DEMANDING TODAY. PT HAS BEEN USING MANNERS AND NOT YELLING OUT RANDOMLY. PT WILL CONTINUE TO ATTEND GROUP THERAPY.
[2018-05-03 20:25] VITALS: BP 108/64
--- NOTE | 2018-05-03 23:30 | NUR ---
PATIENT ALERT AND ORIENTED. PATIENT HAS A VISUAL BARRIER AND IS UNABLE TO SEE AND NEEDS ASSISTANCE THROUGHOUT SHIFT. PATIENT USING THE BATHROOM FREQUENTLY AND IS CONTINENT OF URINE. PATIENT CONTINUES TO YELL OUT FOR "NURSE" LOUDLY THROUGHOUT SHIFT. PATIENT AMBULATING WITH STEADY GAIT AND ASSIST X 1. PATIENT PROVIDED NOURISHMENT, FLUIDS, AND TOILETING. PATIENT DEMANDING AT TIMES WITH NURSING STAFF AND PATIENT REDIRECTED TO WITH 1:1 INTERACTION AND REMINDED TO ASK NURSING FOR HELP. PATIENT VERBALIZED UNDERSTANDING. SEE [facility] FLOW SHEET FOR SPECIFIC MONITORING
--- NOTE | 2018-05-04 00:08 | NUR ---
24 HR chart check completed.
--- NOTE | 2018-05-04 08:30 | NUR ---
Treatment Plan meeting with Dr. Cha, RN, AT, SW and Yeast Fermentation Attendant. Plan for discharge Next week. Pt. for [facility] Care Placement. PASRR completed and Referral faxed to [facility].
[2018-05-04 08:32] VITALS: BP 141/87
--- NOTE | 2018-05-04 10:05 | NUR ---
OT EVAL COMPLETED. NO OW WARRANTED AT THIS TIME. PT COMPLETES ADLS INDEPENDENTLY, INCLUDING FEEDING AND SHOWERING. ISSUES ARE BEHAVIORAL. DASHA MULTANI OT
--- NOTE | 2018-05-04 10:15 | NUR ---
Updates faxed to [place] Attn: Britney.
--- NOTE | 2018-05-04 10:47 | NUR ---
PT YELLING LOUDLY IN DINING ROOM AT BREAKFAST. STATES "DIONNE GOT SHIT ALL OVER ME AND I WANT TO SHOWER". PT ASSISTED TO LOW STIMULATION ENVIRONMENT IN CONFERENCE ROOM WITH STAFF MEMBER FOR 1:1 AND EMOTIONAL SUPPORT WITH REDIRECTION. PT SHOWN THAT SHE HAS NOTHING ON HER CLOTHES. PROVIDED WITH SHOWER. PT MUCH CALMER. STATES "THANK YOU". AND "I WANT TO GO TO BED NOW". PT GIVEN MEDICATION PER ORDER AND ASSISTED BACK TO BED FOR REST. CONTINUE TO ENCOURAGE PT TO CALMLY EXPRESS WISHES. REDIRECT NEEDED. PROVIDE EMOTIONAL SUPPORT NEEDED. ENCOURAGE PT TO SOCIALIZE WITH PEERS AND PARTICIPATE IN GROUP ACTIVITY.
--- NOTE | 2018-05-04 11:00 | NUR ---
DR SCHUMACHER AND TEAM ON UNIT TO ASSESS PT. NOTIFIED OF URINE CULTURE AND SENSITIVITY RESULTS. STATES "OK. WE WILL LOOK"
--- NOTE | 2018-05-04 11:31 | NUR ---
Spoke with Britney at [facility]. Pt. accepted pending Precert and Appropriate bed availability. Pt. will require Level of Care submitted to [facility]. Britney to come today to do onsite Assessment with patient, Nursing staff [facility] notified.
--- NOTE | 2018-05-04 11:39 | NUR ---
AM GROUP THERAPY NO AM GROUP DUE TO NEW PT ASSESSMENTS AND 1:1
--- NOTE | 2018-05-04 12:38 | NUR ---
Level of Care Submitted to [facility] for Further Review. Faxed required information [phone].
--- NOTE | 2018-05-04 13:52 | NUR ---
Britney From [facility] here to see patient for onsite assessment. Spoke with Patient on Unit about discharging to [facility] Pending Precert and PASRR and Level of Care are approved.
--- NOTE | 2018-05-04 15:30 | NUR ---
PERSONAL DAILY GOAL COMMUNICATION STYLE PT RECOGNIZES THAT SHE COMES OFF "GRUFF" WHEN MAKING NEEDS KNOWN.
--- NOTE | 2018-05-04 15:31 | NUR ---
PM GROUP/GAMES AND SOCIALIZATION PT CHOSE NOT TO ATTEND AFTERNOON GROUP THERAPY. PT CHOSE TO STAY IN ROOM AND NAP.
[2018-05-04 19:16] VITALS: BP 120/68
--- NOTE | 2018-05-04 20:26 | NUR ---
Received a phone call from son-Andrae per RN. When this automobile and property underwriter took the call the son was explaining that he wanted his Mom to come live with him in [place] as he just got a new apartment and that his brother is "fucking" everything up and his Mom is not going to get shipped to [place]. Andrae stated he needed to get his Mom her money as his brother didn't take her to get her check/social security. This automobile and property underwriter expressed concerns that when the pt was living with Andrae and others previously the pt was not making her appts and inquired if he could now ensure she make her follow-up appts as taking her medications regularly was essential to her well-being and he indicated that her insurance provided transportation. This automobile and property underwriter indicated that was the case in the past but pt still was not compliant with follow-up tx and the agencies are now not willing to see pt so they just wanted to verify it was feasbile. Andrae stated when the transportation would arrive the pt would say that she was not ready. This automobile and property underwriter highlighted the concern of non-compliance being detrimental to the pts health and indicated the proposed plan of finding a place that could stabilize and help with vision etc for a little longer temporarily and then consider living in the home setting. Andrae began screaming and cursing at this automobile and property underwriter and when redirected and asked to stop name calling and screaming; Andrae became more irritable and said, "Fuck you, you're an ignorant bitch" to which this automobile and property underwriter responded, "I am going to hang up now as you are continuing to scream and call me names" which was witnessed by several RN's.
--- NOTE | 2018-05-04 22:58 | NUR ---
24 HR chart check completed.
--- NOTE | 2018-05-04 23:03 | NUR ---
24 HR chart check completed.
--- NOTE | 2018-05-05 02:08 | NUR ---
P: PARANOID, TEARFUL,DELUSIONAL. I: REDIRECTION AND 1:1 INTERACTION, MED COMPLAINT R: CONTINUE WITH REDIRECTION. AND STRESS THE IMPORTANSE OF MED COMPLIANCE. P: ENCOURAGE VOICING
--- NOTE | 2018-05-05 06:20 | NUR ---
PATIENT DID NOT SLEEP MUCH LAST NIGHT. WENT TO BED ABOUT 8PM,, WAS UP NUMEROUS TIMES TO GO TO THE BATHROOM
[2018-05-05 08:15] VITALS: BP 137/62
--- NOTE | 2018-05-05 12:20 | NUR ---
AM GROUP/EXERCISES/FOCUS PT ATTENDED AND PARTICIPATEDIN GROUP. PT RESTED EYES OFTEN LISTENING AND JOINING IN ON GROUP. PT DID NOT BECOME DELUSIONAL AT THIS TIME. PT WILL CONTINUE TO ATTEND AND PARTICIPATE IN FUTURE GROUP SESSIONS.
--- NOTE | 2018-05-05 12:22 | NUR ---
PERSONAL DAILY GOAL PT STATES "I WANT TO GET ALONG BETTER WITH MY FAMILY" PT GOAL IS TO THINK OF WAYS TO BETTER FAMILY RELATIONSHIPS.
--- NOTE | 2018-05-05 12:58 | NUR ---
PT ADMINISTERED INVEGA 156MG TODAY, PT REFUSED AT 0900 MEDICATION PASS STATING THAT SHE THOUGHT IT WAS A 1 AND DONE MEDICATION. EDUCATED PT ON MEDICATION DOSAGES AND THAT SHE WILL HAVE TO GET THE INJECTION MONTHLY. REAPPROACHED SEVERAL TIMES BY THIS NURSE. 2ND NURSE APPROACHED WITH THIS NURSE AT THIS TIME AND PT PERMITTED SHOT. YELLING "GO AHEAD DO IT!" (PULLING UP HER PANT LEG) "DO IT WHERE EVER THE HELL YOU WANT AND LEAVE ME ALONE" " I JUST WANT TO LEAVE HERE". INJECTION GIVEN WITH NO FURTHER BEHAVIORS AT THIS TIME WITNESSED BY 2 STAFF. CONTINUE TO MONITOR PT.
--- NOTE | 2018-05-05 13:43 | NUR ---
DR. SCHUMACHER ON UNIT TO SEE PT.
--- NOTE | 2018-05-05 15:42 | NUR ---
Shift chart check completed.
[2018-05-05 19:58] VITALS: BP 128/65
--- NOTE | 2018-05-05 22:13 | NUR ---
P- LABILE MOOD, EASILY IRRITABLE. I- PROVIDE 1:1 AND EMOTIONAL SUPPORT. HELP WITH ADL'S AND TRANSFERING DUE TO PATIENT BEING BLIND. PROVIDED MEDICATIONS WITH EDUCATION. TRY TO FIND OUT THE SOURCE OF PATIENTS IRRITABILITY AND EASY MOOD SWINGS. TRY TO ENGAGE IN CONVERSATION AND TALKING WITH OTHER PEERS. R- PATIENT DID NOT WANT TO TALK TO THIS NURSE ABOUT WHY SHE BECOMES SO IRRITABLE, SO QUICKLY. STATED "I JUST REALLY WANT TO LISTEN TO THE TV RIGHT NOW", PUTTING HER HEAD BACK DOWN ON THE TABLE. MEDICATION COMPLIANT. ISOLATIVE TOWARD PEERS AND GUARDED TOWARDS STAFF, HOWEVER STILL TALKED WITH STAFF WHEN NECESSARY. P- CONTINUE TO TRY TO ENGAGE PATIENT IN COVERSATION WITH STAFF AND PEERS. TRY TO FIND OUT THE SOURCE OF PATIENTS IRRITABILITY, TO TRY AND FIND COPING MECHANISMS FOR HER LABILE MOOD. ENCOURAGE TO ATTEND GROUP AND THERAPIES. ENCOURAGE TO INTERACT WITH PEERS AND ATTEND ACTIVITIES. PROVIDE MEDICATIONS AT EACH MED PASS AND PROVIDE EDUCATION FOR EACH. Q15 MINUTE CHECKS MAINTAINED FOR SAFETY.
--- NOTE | 2018-05-05 22:56 | NUR ---
24 HR chart check completed.
--- NOTE | 2018-05-06 04:47 | NUR ---
PT HAS SLEPT QUIETLY THROUGHOUT THE SHIFT PAST 2300
[2018-05-06 07:56] VITALS: BP 115/62
--- NOTE | 2018-05-06 10:50 | NUR ---
P - PT IS GUARDED, DEMANDING, WITHDRAWN TO SELF. I - PT GIVEN 1:1, ENCOURAGED TO CALMLY EXPRESS SELF AND VERBALIZE WANTS AND NEEDS. ENCOURAGED TO PARTICIPATE IN GROUP THERAPY AND TO REMAIN IN DAY ROOM WITH PEERS TO SOCIALIZE. R - PT CONTINUES TO YELL OUT DEMANDS OF STAFF. PT DID REMAIN IN DAY ROOM WITH PEERS, REMAINED WITHDRAWN TO SELF AND HAD NO INTERACTION WITH PEERS. P - CONTINUE TO ENCOURAGE PT TO INTERACT WITH PEERS. ENCOURAGE PT TO PARTICIPATE IN GROUP THERAPY/ACTIVITY FOR SOCIALIZATION AND SUPPORT. PROVIDE EMOTIONAL SUPPORT NEEDED. REDIRECT PT FROM YELLING AND DEMANDING BEHAVIORS.
--- NOTE | 2018-05-06 16:40 | NUR ---
PM GROUP/EXERCISES/BIGNO/ART PT ATTENDED BUT SLEPT IN CHAIR. PT QWOKE UP LAST 15 MINUTES OF GROUP TO USE RESTROOM. PT RETURNED AND STATED "IM SORRY FOR SLEEPING THROUGH YOUR GROUP BECVAUSE I LIKE TO LISTEN TO WHAT YOU HAVE TO SAY". THIS STAFF WILL PLAN TO ENSURE PT IS AWAKE FOR GROUP TOMORROW. PT WILL CONTINUE TO ATTEND AND BE ENCOURAGED TO PARTICIPATE IN FUTURE GROUP SESSIONS.
--- NOTE | 2018-05-06 16:41 | NUR ---
PERSONAL DAILY GOAL PT UNABLE TO COME UP WITH DAILY GOAL DUE TO SLEEPING ENTIRE GROUP.
[2018-05-06 20:00] VITALS: BP 125/62
--- NOTE | 2018-05-06 21:59 | NUR ---
24 HR chart check completed.
--- NOTE | 2018-05-07 00:39 | NUR ---
P-INCREASED ANXIETY, DEPRESSED MOOD I-PROVIDE 1:1 FOR EMOTIONAL SUPPORT. PROVIDE PHYSICAL ASSISTANCE NEEDED, ADMININSTER MEDICATIONS, MONITOR SLEEP, DISCUSSED ALTERNATE COPING MODES & DIVERSIONAL ACTIVITIES TO DECREASE ANXIETY R-PT VERBAL, MOOD DEPRESSED WITH INCREASED ANXIETY. BECAME UPSET WHEN A PHONE CALL WAS MADE TO HER SON & SHE FOUND OUT A MESSAGE COULD NOT BE LEFT OR THE NUMBER HAD BEEN DISCONNECTED. HAD AN OUTBURST IN THE DINING ROOM & STARTED CRYING & STATED, "MY FAMILY REALLY HAS LEFT ME. NO ONE WANTS ME". EMOTIONAL SUPPORT PROVIDED & PT DID CALM RATHER QUICKLY. SHE DID CONNECT ON A PHONE CALL TO HER OTHER SON, MEHREEN. SHE IS LOUD & DEMANDING WHEN NEEDING ASSISTANCE TO GO TO HER BATHROOM DUE TO HER VISUAL DEFICITS. SHE DID SIT IN THE DINING ROOM QUIETLY WITH PEERS & KEEPS TO HERSELF. P-CONTINUE TO MONITOR & PROVIDE WITH EMOTIONAL SUPPORT & PHYSICAL ASSISTANCE NEEDED
--- NOTE | 2018-05-07 06:00 | NUR ---
PT HAS SLEPT PAST 2200 WITH 4 AWAKENINGS TO GO TO THE BATHROOM. YELLS OUT FOR NURSE FOR ASSISTANCE TO BATHROOM. CONTINENT OF URINE. PRESENTLY IN THE SHOWER.
[2018-05-07 08:10] VITALS: BP 120/67
--- NOTE | 2018-05-07 08:15 | NUR ---
Treatment Plan meeting with Dr. Cha, RN, AT, SW and Supervisor Lime. Plan for discharge Monday pending ETJAL and Sally.
--- NOTE | 2018-05-07 10:30 | NUR ---
Spoke with Britney at [facility]. Advised that [facility] approved.
--- NOTE | 2018-05-07 10:31 | NUR ---
PASRR Determination Returns. Approved for Nursing Facility Services. Faxed updates to [facility]. Precert started.
--- NOTE | 2018-05-07 10:58 | NUR ---
PERSONAL DAILY GOAL COPING WITH DEPRESSION PT STATES, "I NEED TO FIGURE OUT HOW TO DEAL WITH MY DEPRESSION"
--- NOTE | 2018-05-07 12:19 | NUR ---
AM GROUP/EXERCISES/GAMES PT ATTENDED AND PARTICIPATED IN GROUP. PT SLEPT INBETWEEN TURNS DURING GAMES BUT DID PARTICIPATE. PT HAD TROUBLE SEEING FOR GAMES BUT STILL ENJOYED PARTICIPATING. PT DID NOT BECOME DELUSIONAL AT THIS TIME. PT WILL CONTINUE TO ATTEND AND PARTICIPATE DURING GROUP.
--- NOTE | 2018-05-07 15:59 | NUR ---
PM GROUP/ART/MUSIV PT ATTENDED GROUP BUT DID NOT PARTICIPATE. PT SLEPT IN WHEELCHAIR THROUGHOUT GROUP. PT WOKE AT THE END OF GROUP ASKING TO USE BATHROOM. PT STATES "I DIDN'T PARTICIPATE IN THE ART BC I CANT SEE BUT ITS NICE LOOKING AT EVERYONE ELSES PROJECTS" THIS STAFF DID NOT DISPLAY ANY DELUSIONS AT THIS TIME. PT WILL CONTINUE TO ATTEND AND PARTICIPATE TO BEST OF ABILITY.
--- NOTE | 2018-05-07 16:42 | NUR ---
DR. SCHUMACHER ON UNIT TO ASSESS PATIENT.
--- NOTE | 2018-05-07 17:32 | NUR ---
PATIENT IS ALERT TO PERSON, PLACE, TIME AND SITUATION. MOOD IS IRRITABLE AT TIMES. DENIES ANY HALLUCINATIONS, DELUSIONS, HI/SI OR PAIN. 1 PERSON ASSIST WITH ACTIVITIES OF DAILY LIVING. CONTINENT OF BOWEL AND BLADDER. SET UP FOR MEALS, INTAKES ARE GOOD WITH ADEQUATE FLUIDS. PATIENT ON PHONE TODAY WITH FAMILY, RAISING VOICE AND YELLING, REDIRECTED, BECOME IRRITABLE. PHONE CALL ENDED DUE TO BECOMING UPSET. ONE ON ONE/REDIRECTION PROVIDED. PATIENT PREOCCUPIED REGARDING WANT HER CIGARETTES FOR WHEN SHE IS DISCHARGE FROM HOSPITAL. PATIENT ATTENDED GROUP SESSEION BUT DID NOT PARTICIPATE. Q 15 MINUTE SAFETY CHECKS; MEDICATION COMPLIANT WITH EDUCATION PROVIDED. CONTINUE TO MONITOR FOR HALLUCINATIONS/DELUSIONS; PROVIDE ONE ON ONE AND REDIRECTION NEEDED.
[2018-05-07 20:48] VITALS: BP 137/72
--- NOTE | 2018-05-08 03:19 | NUR ---
P- MEDICATION COMPLIANCE, DEPRESSED MOOD I- PROVIDE 1:1 FOR EMOTIONAL SUPPORT AND FOR PATIENT TO VOICE FEELINGS. EDUCATE AND ENCOURAGE MEDICATION COMPLIANCE. MONITOR SLEEP. R- PT NOT RECEPTIVE TO 1:1, GUARDED, STATED "YEAH WHATEVER, IM FINE". PATIENT REFUSED HS MEDICATION AFTER EDUCATION STATING "I DONT WANT IT, I DONT NEED IT, AND ILL BE TELLING THE DOCTOR ABOUT IT IN THE MORNING, ANNA REFUSED". P- CONTINUE TO MONITOR FOR MOOD AND BEHAVIOR CHANGES, PROVIDE 1:1 NEEDED. ENOURAGE MEDICATION COMPLIANCE. Q 15 MIN SAFETY CHECKS.
--- NOTE | 2018-05-08 05:50 | NUR ---
24 HOUR CHART CHECK COMPLETED.
--- NOTE | 2018-05-08 06:23 | NUR ---
PATIENT OBSERVED ON Q 15 MIN CHECKS TO HAVE SLEPT APPROX 3 HOURS INTERRUPTED WITH MUTIPLE AWAKENINGS NOTED DURING STAFF CHECKS. NO SIGNS OR SYMPTOMS OF DISTRESS NOTED.
[2018-05-08 08:05] VITALS: BP 125/76
--- NOTE | 2018-05-08 10:00 | NUR ---
DR. SCHUMACHER ON UNIT TO ASSESS PATIENT.
--- NOTE | 2018-05-08 12:01 | NUR ---
PERSONAL DAILY GOAL SELF-AWARENESS PT EXPRESSES DESIRE TO MORE SELF-FORGIVING
--- NOTE | 2018-05-08 12:02 | NUR ---
AM GROUP/EXERCISE/SELF-WORTH PT ATTENDED AND PARTICIPATED IN ALL GROUP ACTIVITIES. PT EXPRESSED NO DELUSIONAL IDEATIONS OR EXHIBITED ANY AGGRESSION DURING GROUP.
--- NOTE | 2018-05-08 12:39 | NUR ---
PHYSICAL THERAPY PAtient evaluated on three this date, full evaluation to follow. Continue with PT as per plan of care with fall, unit three, poor vision and alarms precautions. Patient is moderate complexity via chart review, tests and evaluation: 32080. Thank you for this referral. Brionna Duncan,PT
--- NOTE | 2018-05-08 13:44 | NUR ---
Britney from [facility] calls. Auth Received. Pt. can discharge today. Nursing Staff [facility] notified.
--- NOTE | 2018-05-08 14:46 | NUR ---
Spoke with Pt. Riky Abebe and notified of Plans to discharge today with Pt. going to [place].
--- NOTE | 2018-05-08 15:16 | NUR ---
SPOKE WITH DR. CARDENAS AT [phone] RE:PT DISCHARGE AND MEDICAL MEDS NEEDING COMPLETED. NO FRUTHER ORDERS AT THIS ITME.
--- NOTE | 2018-05-08 15:28 | NUR ---
[facility] CALLED INTO [facility] PER 'S ORDERS, SPOKE [facility] PHARMACIST JAIME.
[2018-05-08] MEDS ORDERED: SIMVASTATIN10 MG PO (15:31)
[2018-05-08] MEDS ORDERED: VITAMIN D5000 UNI1 PO (15:31)
[2018-05-08] MEDS ORDERED: B121000 MCG/1 IM (15:31)
[2018-05-08] MEDS ORDERED: AVPAK METFORMI500 MG PO (15:31)
--- NOTE | 2018-05-08 15:37 | NUR ---
PM GROUP/LEISURE INTEREST PT ATTENDED AND PARTICIPATED IN GROUP THERAPY. PT RECLINED IN A CHAIR WITH FEET UP AND SANG ALONG WITH THE MUSIC. PT EXHIBITED NO AGITATION OR AGGRESSION DURING GROUP.
--- NOTE | 2018-05-08 16:12 | NUR ---
Message left for Pt. daughter Shauna to notify of discharge today. Faxed Expert eval and Progress note from [facility] to [place] Attn: Britney.
--- NOTE | 2018-05-08 17:35 | NUR ---
NURSE TO NURSE REPORT GIVEN TO ROYAL AT [facility].
--- NOTE | 2018-05-08 18:08 | NUR ---
AMBULANCE SERVICE PRESENT PATIENT READY FOR DISCHARGE. PATIENT ASSISTED TO [facility]. ALL BELONGING AND DISCHARGE INSTRUCTIONS SENT WITH PATIENT OFF UNIT. DISCHARGE INSTRUCTIONS REVIEWED BEFORE DINNER AND SIGNED.
[2018-07-05] MEDS ORDERED: INVEGA SUSTENN234 MG IM (15:41)
[2018-07-05] MEDS ORDERED: REMERON30 M1 PO (15:47)
[2018-07-05] MEDS ORDERED: MUSCLE RUB CREA35 GM T (15:52)
[2018-07-05] MEDS ORDERED: RISPERDAL0.5 MG PO (15:52)
[2018-07-05] MEDS ORDERED: TYLENOL325 M2 PO (15:53)
[2018-07-12] MEDS ORDERED: PALIPERIDONE ER6 MG PO (08:51)
[2018-07-12] MEDS ORDERED: INVEGA SUSTENN156 MG IM (08:51)
== END 2018-05-08 18:08 | DRG 885 ==
LOC: 3N 11:23
PROVIDERS: ADMIT Psychiatry & Neurology Psychiatry
DX: F25.9 Schizoaffective disorder, unspecified (principal); E44.1 Mild protein-calorie malnutrition; F22 Delusional disorders; R82.71 Bacteriuria; R91.1 Solitary pulmonary nodule; E66.3 Overweight; E55.9 Vitamin D deficiency, unspecified; H54.7 Unspecified visual loss; E11.65 Type 2 diabetes mellitus with hyperglycemia; F17.210 Nicotine dependence, cigarettes, uncomplicated; F10.10 Alcohol abuse, uncomplicated; Z90.49 Acquired absence of other specified parts of digestive tract; Z90.5 Acquired absence of kidney; Z82.49 Family history of ischemic heart disease and other diseases of the circulatory system; Z80.1 Family history of malignant neoplasm of trachea, bronchus and lung; Z88.5 Allergy status to narcotic agent; Z88.0 Allergy status to penicillin; Z91.040 Latex allergy status; Z68.28 Body mass index [BMI] 28.0-28.9, adult

== ENCOUNTER 2020-03-20 19:31 | Inpatient (IN) | payer OTHER ==
[~2020-03-20] VITALS: Ht 160 cm; Wt 103.5 kg
[~2020-03-20 19:31] MED LIST changes: +AVPAK METFORMI500 MG PO; +B121000 MCG/1 IM; +DEPAKOTE125 MG PO; +GLUCOPHAGE500 M1 PO; +MUSCLE RUB CREA35 GM T; +PALIPERIDONE ER6 MG PO; +REMERON30 M1 PO; +RISPERDAL0.5 MG PO; +RISPERIDONE M-TA2 MG PO; +SIMVASTATIN10 MG PO; +SIMVASTATIN20 MG PO; +TYLENOL325 M2 PO; +VISTARIL50 MG PO; +VITAMIN D5000 UNI1 PO
[2020-03-20 19:34] VITALS: BP 118/79
[2020-03-20 20:00] LABS: BASO % 0.4 % (0.0-1.0); EOS # 0.1 10*3/uL (0.0-0.4); LYMPH # 2.2 10*3/uL (1.3-4.4); LYMPH % 28.9 % (27.0-41.0); MEAN CELL VOLUME 95.1 fl (81.0-99.0); MEAN CORPUSCULAR HGB 30.5 pg (27.0-31.0); MEAN CORPUSCULAR HGB CONC 32.1 g/dl (33.0-37.0); MEAN PLATELET VOLUME 10.9 fl (9.6-12.3); MONO # 0.6 10*3/uL (0.1-1.0); MONO % 8.3 % (3.0-9.0); NEUT # 4.8 10*3/uL (2.3-7.9); NEUT % 61.3 % (47.0-73.0); PLATELET COUNT AUTOMATED 183 10*3/uL (130-400); RED BLOOD COUNT 4.52 10*6/uL (4.10-5.10); RED CELL DISTRI WIDTH 11.6 % (0-14.5); WHITE BLOOD COUNT 7.8 10*3/uL (4.8-10.8)
[2020-03-20 20:02] LABS: BILIRUBIN Negative (Negative); BLOOD Negative (Negative); CLARITY Cloudy (Clear); COLOR Yellow (Yellow); GLUCOSE Negative (Negative); KETONE Negative (Negative); LEUKO ESTERASE 3+ (Negative); NITRITE Negative (Negative); SPECIFIC GRAVITY 1.015 (1.001-1.030); UROBILINOGEN 0.2 E.U./dl (0.0-1.0)
[2020-03-20 20:09] LABS: URINE AMPHETAMINES < 1000 (1000ng/ml); URINE BARBITURATES < 200 (200ng/ml); URINE BENZODIAZEPINES < 200 (200ng/ml); URINE CANNABINOIDS (THC) < 50 (50ng/ml); URINE COCAINE < 300 (300ng/ml); URINE METHADONE < 300 (300ng/ml); URINE OPIATES < 300 (300ng/ml)
[2020-03-20 20:10] LABS: URINE PHENCYCLIDINE < 25 (25ng/ml)
[2020-03-20 20:13] LABS: ACETAMINOPHEN (TYLENOL) < 5.0 ug/ml (10-30); ALBUMIN 3.1 gm/dl (3.1-4.5); ALKALINE PHOSPHATASE 77 U/L (45-117); BUN 16 mg/dl (7-24); CHLORIDE 105 mmol/L (98-107); CREATININE 0.88 mg/dL (0.55-1.02); ETHYL ALCOHOL < 3.0 mg/dl (<3); POTASSIUM 4.1 mmol/L (3.5-5.1); SGOT/AST 12 IU/L (3-35); SGPT/ALT 17 U/L (12-78); SODIUM 141 mmol/L (136-145); TOTAL PROTEIN 6.4 gm/dL (6.4-8.2)
[2020-03-20 20:15] LABS: BACTERIA 2+; RBC 0-2 rbc/hpf (0-2); WBC TNTC wbc/hpf (0-5)
[2020-03-20 21:12] VITALS: BP 146/90
[2020-03-20] MEDS ORDERED: CIPRO250 MG PO (21:22)
[2020-03-20] MEDS ORDERED: TYLENOL325 M1 PO (22:41)
[2020-03-20] MEDS ORDERED: MYLANTA MAXIMU355 M1 PO (22:44)
[2020-03-21 07:22] LABS: THYROID STIM HORMONE (HS) 2.01 uIU/ml (0.358-4.75)
[2020-03-21 07:51] VITALS: BP 133/77
[2020-03-21 20:00] VITALS: BP 128/59
[2020-03-22 08:00] VITALS: BP 119/58
[2020-03-22 19:30] VITALS: BP 136/80
[2020-03-23 07:39] VITALS: BP 135/74
[2020-03-23 19:04] VITALS: BP 123/63
[2020-03-24 07:53] VITALS: BP 136/78
[2020-03-24 19:22] VITALS: BP 135/81
[2020-03-25 06:58] VITALS: BP 121/65
[2020-03-25 19:02] VITALS: BP 130/64
[2020-03-26 06:40] VITALS: BP 134/62
[2020-03-26 19:48] VITALS: BP 122/73
[2020-03-27 08:00] VITALS: BP 131/71
[2020-03-27] MEDS ORDERED: LORAZEPAM2 MG/1 M1 IM (09:58)
[2020-03-27] MEDS ORDERED: LORAZEPAM1 MG PO (09:58)
[2020-03-27] MEDS ORDERED: INVEGA SUSTENN234 MG IM (09:58)
[2020-03-27] MEDS ORDERED: BENZTROPINE ME0.5 MG PO (09:58)
[2020-03-27 20:00] VITALS: BP 144/85
[2020-03-28 08:00] VITALS: BP 118/64
[2020-03-28 18:24] VITALS: BP 126/78
[2020-03-29 07:24] VITALS: BP 122/67
[2020-03-29 19:18] VITALS: BP 125/68
[2020-03-30 07:28] VITALS: BP 116/78
[2020-03-30 17:47] LABS: BILIRUBIN Negative (Negative); BLOOD Negative (Negative); CLARITY Clear (Clear); COLOR Yellow (Yellow); GLUCOSE Negative (Negative); KETONE Negative (Negative); LEUKO ESTERASE Negative (Negative); NITRITE Negative (Negative); PH 6.5 (4.5-8.0); SPECIFIC GRAVITY <= 1.005 (1.001-1.030); UROBILINOGEN 0.2 E.U./dl (0.0-1.0)
[2020-03-30 17:57] LABS: BACTERIA TRACE; RBC 0-2 rbc/hpf (0-2)
[2020-03-30 19:30] VITALS: BP 121/76
[2020-03-31 07:32] VITALS: BP 120/71
== END 2020-03-31 15:05 | DRG 750 ==
LOC: ED 19:31 → 3N 21:14
PROVIDERS: Counselor Professional; Nurse Practitioner Family; ADMIT Psychiatry & Neurology Psychiatry; ATTEND Psychiatry & Neurology Psychiatry
DX: F25.0 Schizoaffective disorder, bipolar type (principal); J45.909 Unspecified asthma, uncomplicated; E11.65 Type 2 diabetes mellitus with hyperglycemia; R06.89 Other abnormalities of breathing; N30.00 Acute cystitis without hematuria; E66.9 Obesity, unspecified; Z20.828 Contact with and (suspected) exposure to other viral communicable diseases; H54.8 Legal blindness, as defined in USA; Z71.6 Tobacco abuse counseling; Z87.891 Personal history of nicotine dependence; Z88.0 Allergy status to penicillin; Z88.5 Allergy status to narcotic agent; Z90.49 Acquired absence of other specified parts of digestive tract; Z90.5 Acquired absence of kidney; Z82.49 Family history of ischemic heart disease and other diseases of the circulatory system; Z80.1 Family history of malignant neoplasm of trachea, bronchus and lung; Z83.3 Family history of diabetes mellitus; Z68.41 Body mass index [BMI] 40.0-44.9, adult